=== PATIENT | male | born 1990 | race Caucasian/White ===

== ENCOUNTER 2017-07-31 07:32 | Emergency (ER) | payer BC ==
[2017-07-31 07:44] VITALS: BP 132/78
--- NOTE | 2017-07-31 08:39 | RAD ---
INDICATION: Right hand pain after a fall COMPARISON: None. TECHNIQUE: 4 views of the right hand were obtained. FINDINGS: There is a comminuted and impacted fracture involving the distal head of the right fifth metatarsal. On lateral and oblique views there appears to be a small degree of dorsal angulation. The remaining visualized bones are intact and appropriately aligned. IMPRESSION: Comminuted fracture involving the distal head of the right fifth metatarsal.
[2017-07-31] MEDS ORDERED: Ibuprofen TAB* 800 MG PO ONE (09:21)
--- NOTE | 2017-07-31 09:25 | ED ---
Upper Extremity Pain - HPI Summary HPI Summary: [id number] patient here with right hand injury last night. Reports he was taking care of the horses when he slipped in the mud and during his fall accidentally punched the barn wall door. He has swelling and bruising of the 5th MC aspect of his right hand. Denies numbness tingling or weakness and no wrist pain/limitation. Pain is better with rest, lack of movement. Pain is worse with movement. Denies previous injuries to this extremity and no previous fractures. So far, has tried Tylenol at home. Has been icing since here. Would like ibuprofen now. - History of Current Complaint Chief Complaint: EDExtremityUpper Stated Complaint: RT HAND INJURY Time Seen by Provider: 07/31/17 08:29 Hx Obtained From: Patient, Family/Customer Service Sales Associate - - Allergies/Home Medications Allergies/Adverse Reactions: Allergies Allergy/AdvReac Type Severity Reaction Status Date / Time No Known Allergies Allergy Verified 07/31/17 07:44 Home Medications: Home Medications NK [No Home Medications Reported] 07/31/17 [History Confirmed 07/31/17] PMH/Surg Hx/FS Hx/Imm Hx Previously Healthy: Yes Endocrine/Hematology History: Denies: Hx Anticoagulant Therapy, Hx Blood Disorders, Hx Unexplained Bleeding Infectious Disease History: No Infectious Disease History: Denies: Traveled Outside the [place] in Last 30 Days - Social History 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 Lives: With Family Alcohol Use: Occasionally Hx Substance Use: No Substance Use Type: Reports: None Hx Tobacco Use: No Smoking Status (MU): Never Smoked Tobacco Review of Systems Positive: no symptoms reported Positive: Arthralgia, Myalgia, Decreased ROM, Edema Positive: Bruising Neurological: Negative Psychological: Normal All Other Systems Reviewed And Are Negative: Yes Physical Exam Triage Information Reviewed: Yes Vital Signs On Initial Exam: Initial Vitals Temp Pulse Resp BP Pulse Ox 97.5 F 78 16 132/78 98 07/31/17 07:41 07/31/17 07:41 07/31/17 07:41 07/31/17 07:41 07/31/17 07:41 Vital Signs Reviewed: Yes Appearance: Positive: Well-Appearing, Well-Nourished, Pain Distress - mild Skin: Positive: Warm, Skin Color Reflects Adequate Perfusion, Dry - ecchymosis and edema over effected area of 5th MC on Rt hand; no skin breakdown Head/Face: Positive: Normal Head/Face Inspection Eyes: Positive: EOMI ENT: Positive: Hearing grossly normal Respiratory/Lung Sounds: Positive: Breath Sounds Present Cardiovascular: Positive: Normal, Pulses are Symmetrical in both Upper and Lower Extremities Musculoskeletal: Positive: Strength/ROM Intact - can move pinky at IP joints - limited at MCP joint, 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 Re-Evaluation - Re-Evaluation First Eval Change: Improved - pt reports splint helps pain Course/Dx - Course Course Of Treatment: XR reveals comminuted distal Rt 5th MC. Reviewed results w / pt and as well as care instructions. Danger s/sx also reviewed. Pt will f /u w/ ortho. - Diagnoses Provider Diagnoses: Fracture of fifth metacarpal bone of right hand Discharge - Sign-Out/Discharge Documenting (check all that apply): Discharge - Discharge Plan Condition: Stable Disposition: HOME Patient Education Materials: Hand Fracture (ED), Splint Care (ED) Forms: *Work Release Referrals: Sandy Franks MD [Medical Doctor] - Additional Instructions: REST, ICE, ELEVATE AND KEEP SPLINT CLEAN, DRY AND IN PLACE UNTIL SEEN BY ORTHOPEDICS You may take ibuprofen alternating with acetaminophen as needed for pain Call orthopedics Wednesday to schedule follow-up *If you develop numbness, tingling, weakness, swelling or skin discoloration, loosen DOLORES wrap and elevate arm for 20 minutes. If symptoms persist, return to ED - Billing Disposition and Condition Condition: STABLE Disposition: HOME
== END 2017-07-31 09:59 | disposition home or self-care (01) ==
LOC: ED 07:32
DX: S62.396A Other fracture of fifth metacarpal bone, right hand, initial encounter for closed fracture (principal); W01.0XXA Fall on same level from slipping, tripping and stumbling without subsequent striking against object, initial encounter; Y92.9 Unspecified place or not applicable
CPT/HCPCS: 99282

== ENCOUNTER 2019-02-13 16:10 | Emergency (ER) | payer BC ==
[2019-02-13 18:46] LABS: ABS Lymphocytes 1.8 10^3/ul (1.0-4.8); ABS Monocytes 0.6 10^3/ul (0-0.8); ABS Neutrophils 3.9 10^3/ul (1.5-7.7); Eosinophil % 0.6 %; Hematocrit 44 % (42-52); Hemoglobin 15.1 g/dL (14.0-18.0); Mean Corpuscular HGB Conc 35 g/dL (31-36); Mean Corpuscular Hemoglobin 31 pg (27-31); Mean Corpuscular Volume 90 fL (80-94); Mean Platelet Volume 8.9 fL (7.4-10.4); Nucleated Red Blood Cells % 0.1; Platelet Count 180 10^3/uL (150-450); Red Blood Count 4.88 10^6 /uL (4.18-5.48); Red Cell Distribution Width 12 % (10-15); White Blood Count 6.4 10^3/uL (3.5-10.8)
[2019-02-13 18:58] LABS: Albumin 4.8 g/dL (3.2-5.2); Albumin/Globulin Ratio 2.2 (1-3); BUN/Creatinine Ratio 19.1 (8-20); Calcium 10.2 mg/dL (8.6-10.3); EGFR Non-African American 94.2 (>60); Globulin 2.2 g/dL (2-4); Potassium 4.4 mmol/L (3.5-5.0); Total Bilirubin 0.8 mg/dL (0.2-1.0)
--- NOTE | 2019-02-13 20:00 | ED ---
Headache - HPI Summary HPI Summary: 28 yo male presents with headache. He tells me that he has a hx of migraines, but about 5-6 years ago his migraines nearly resolved and he has not had one since that time. Today he tells me that around 1500 he developed a right sided frontal headache with wavy-like blurry vision in his right eye. During this time he felt that he was able to recall the date and name of family members, but had difficulty visualizing their faces. This lasted about 15-20min and then improved, but mild headache persisted until 1900 this evening before spontaneously resolving. He also mentions that over the last month he has noticed when going up stairs that his left foot will catch on the step and he will trip. Happens 3-5 times a week. He mentions that he was bitten by a tick about 5 months ago that he thinks was attached around 24 hours. Currently he denies any symptoms - no headache, dizziness, vision changes, abdominal pain, n/ v, SOB, chest pain, numbness, tingling, or weakness. No trauma or injury recent Pt admits that he has been under a lot of stress due to being and is not sleeping well. - History Of Current Complaint Chief Complaint: EDHeadache Stated Complaint: VISUAL AND COGNITIVE ISSUES PER PT Time Seen by Provider: 02/13/19 18:17 Hx Obtained From: Patient Onset/Duration: Sudden Onset - Allergies/Home Medications Allergies/Adverse Reactions: Allergies Allergy/AdvReac Type Severity Reaction Status Date / Time No Known Allergies Allergy Verified 07/31/17 07:44 PMH/Surg Hx/FS Hx/Imm Hx Endocrine/Hematology History: Denies: Hx Anticoagulant Therapy, Hx Blood Disorders, Hx Unexplained Bleeding Cardiovascular History: Denies: Hx Hypotension, Hx Hypertension Respiratory History: Denies: Hx Asthma, Hx Chronic Obstructive Pulmonary Disease (COPD) Sensory History: Denies: Hx Contacts or Glasses Neurological History: Reports: Hx Migraine Denies: Hx CVA - Surgical History Surgical History: None - Immunization History Immunizations Up to Date: Yes Infectious Disease History: No Infectious Disease History: Denies: Traveled Outside the [place] in Last 30 Days - Family History Known Family History: Positive: None - Social History Occupation: Employed Full-time Lives: With Family Alcohol Use: Occasionally Hx Substance Use: No Substance Use Type: Reports: None Hx Tobacco Use: No Smoking Status (MU): Never Smoked Tobacco Review of Systems Constitutional: Negative Positive: Blurred Vision - resolved ENT: Negative Cardiovascular: Negative Respiratory: Negative Gastrointestinal: Negative Genitourinary: Negative Musculoskeletal: Negative Skin: Negative Positive: Headache - resolved Psychological: Normal All Other Systems Reviewed And Are Negative: No Physical Exam - Summary Physical Exam Summary: GENERAL: NAD. WDWN. No pain distress. SKIN: No rashes, sores, ulcers, masses, lesions. HEENT: Head: AT/NC. No raccoon eyes or battles sign. Eyes: PERRLA. EOM intact. Conjunctiva clear without inflammation or discharge. Ears: Hearing grossly normal. TMs intact, no bulging, erythema, or edema. No hemotympanum Nose: Nasal mucosa pink and moist. NTTP maxillary and frontal sinus. Throat: Posterior oropharynx without exudates, erythema, or tonsillar enlargement. Uvula midline. NECK: Supple. Nontender. FROM CHEST: CTAB. No r/r/w. No accessory muscle use. Breathing comfortably and in no distress. CV: RRR. Pulses intact. Brisk cap refill. ABDOMEN: Soft. NTTP. Bowel sounds present MSK: FROM in B/L UEs and LEs with symmetric strength. NEURO: A&Ox3. 3 word recall, remote, recent memory, ability to follow 2-step directions, and attention intact. CN: II: Peripheral pena intact. Vision normal. III, IV, : EOMI. No nystagmus. PERRLA. V: Sensations intact and symmetric. Opens mouth and clenches teeth. VII: No facial asymmetry. Forehead wrinkles. Grins, shuts eyes, frowns, puffs cheeks. VIII: Hearing intact to finger rub. IX, X: Swallows and coughs. Uvula midline. XI: Shrugs shoulders. Turns head against resistance. XII: No tongue deviation Nzrcwa-an-cauz are intact. Gait with normal base. Romberg: maintains balance, no pronator drift. Normal speech. No facial drooping. PSYCH: Age appropriate behavior. Triage Information Reviewed: Yes Vital Signs On Initial Exam: Initial Vitals Temp Pulse Resp BP Pulse Ox 97.8 F 70 16 130/97 99 02/13/19 16:30 02/13/19 16:30 02/13/19 16:30 02/13/19 16:30 02/13/19 16:30 Vital Signs Reviewed: Yes Procedures - Sedation Patient Received Moderate/Deep Sedation with Procedure: No Diagnostics - Vital Signs Vital Signs Temp Pulse Resp BP Pulse Ox 02/13/19 16:30 97.8 F 70 16 130/97 99 - Laboratory Lab Results: Lab Results 02/13/19 02/13/19 02/13/19 Range/Units 18:34 18:34 18:34 WBC 6.4 (3.5-10.8) 10^3/uL RBC 4.88 (4.18-5.48) 10^6 /uL Hgb 15.1 (14.0-18.0) g/dL Hct 44 (42-52) % MCV 90 (80-94) fL MCH 31 (27-31) pg MCHC 35 (31-36) g/dL RDW 12 (10-15) % Plt Count 180 (150-450) 10^3/uL MPV 8.9 (7.4-10.4) fL Neut % (Auto) 60.4 % Lymph % (Auto) 29.0 % [place] % (Auto) 9.4 % Eos % (Auto) 0.6 % Baso % (Auto) 0.6 % Absolute Neuts (auto) 3.9 (1.5-7.7) 10^3/ul Absolute Lymphs (auto) 1.8 (1.0-4.8) 10^3/ul Absolute Monos (auto) 0.6 (0-0.8) 10^3/ul Absolute Eos (auto) 0.0 (0-0.6) 10^3/ul Absolute Basos (auto) 0.0 (0-0.2) 10^3/ul Absolute Nucleated RBC 0.0 10^3/ul Nucleated RBC % 0.1 Sodium 137 (135-145) mmol/L Potassium 4.4 (3.5-5.0) mmol/L Chloride 102 (101-111) mmol/L Carbon Dioxide 29 (22-32) mmol/L Anion Gap 6 (2-11) mmol/L BUN 18 (6-24) mg/dL Creatinine 0.94 (0.67-1.17) mg/dL Est GFR ( Amer) 114.0 (>60) Est GFR (Non-Af Amer) 94.2 (>60) BUN/Creatinine Ratio 19.1 (8-20) Glucose 93 (70-100) mg/dL Lactic Acid 0.6 (0.5-2.0) mmol/L Calcium 10.2 (8.6-10.3) mg/dL Total Bilirubin 0.80 (0.2-1.0) mg/dL AST 17 (13-39) U/L ALT 16 (7-52) U/L Alkaline Phosphatase 48 (34-104) U/L Total Protein 7.0 (6.4-8.9) g/dL Albumin 4.8 (3.2-5.2) g/dL Globulin 2.2 (2-4) g/dL Albumin/Globulin Ratio 2.2 (1-3) Result Diagrams: 02/13/19 18:34 02/13/19 18:34 Lab Statement: Any lab studies that have been ordered have been reviewed, and results considered in the medical decision making process. - CT brain CT Interpretation Completed By: Radiologist Summary of CT Findings: IMPRESSION: No acute intracranial abnormality. No interval change. Headache Course/Dx - Course Course Of Treatment: CT and labs as above. Unremarkable. Pt is currently asymptomatic. I discussed the case with Dr. Goyal of neurology and he recommends outpatient follow up and favors a dx of migraine regarding pt's headache this evening, but requires further non-emergent eval of foot symptoms. Discussed results with pt and he is agreeable to the plan. Strongly encoruaged to return to the ED if his symptoms return or worsen. - Diagnoses Provider Diagnoses: Migraine Discharge ED - Sign-Out/Discharge Documenting (check all that apply): Patient Departure - Discharge Plan Condition: Stable Disposition: HOME Patient Education Materials: Migraine Headache (ED) Referrals: Nael Sen MD [Medical Doctor] - As Soon As Possible No Primary Care Phys,NOPCP [Primary Care Provider] - [facility] [place] PHYSICIAN REFERRAL [Outside] - As Soon As Possible Additional Instructions: If you develop a fever, shortness of breath, chest pain, new or worsening symptoms - please call your PCP or go to the ED immediately. I recommend that you call Neurology at the number below to schedule an appointment for further evaluation. Please follow up with a primary doctor as soon as possible for routine care - I recommend Dr. Too Chow. - Billing Disposition and Condition Condition: STABLE Disposition: Home
[2019-02-13 20:14] LABS: Urine Appearance Clear; Urine Bilirubin Negative (Negative); Urine Blood Negative (Negative); Urine Color Colorless; Urine Glucose Negative (Negative); Urine Ketones Negative (Negative); Urine Nitrite Negative (Negative); Urine Protein Negative (Negative); Urine Specific Gravity 1.003 (1.010-1.030); Urine Urobilinogen Negative (Negative)
[2019-02-13 20:45] VITALS: BP 108/78
== END 2019-02-13 20:44 | disposition home or self-care (01) ==
LOC: ED 16:10
DX: G43.909 Migraine, unspecified, not intractable, without status migrainosus (principal)
CPT/HCPCS: 36415; 70450; 80053; 81003; 83605; 85025; 86618; 99282